=== PATIENT | male | born 1955 | race African-American/Black ===

== ENCOUNTER 2018-11-04 08:17 | Emergency (ER) | payer MEDICAID ==
--- NOTE | 2018-11-04 08:35 | EDPHY ---
H & P Time Seen by Provider: 11/04/18 08:32 HPI/ROS: Chief complaint. Difficulty breathing HPI. 63-year-old male homeless difficulty breathing. He says shortness of breath for 3-4 days. No fever. Has had cough. He has hand and foot pain he says after getting range and snowed on 1 week ago without wearing any socks. His feet are swollen. His hands hurt. Chronic back pain that is worse. Pain is in the low back. No radiation to legs. No leg weakness or bowel or bladder symptoms. Seen for same symptoms at [facility] 2 days ago. He had chest pain last night but not now. No abdominal pain or vomiting or diarrhea ROS 10 systems were reviewed and negative with the exception of the elements mentioned in the history of present illness Past Medical/Surgical History: Past medical history hypertension and chronic back pain Social History: Single, homeless, daily smoker, no alcohol Smoking Status: Current every day smoker Physical Exam: General Appearance: Alert well-developed male mild distress vital signs are stable. Afebrile Eyes: Pupils equal and round no pallor or injection. ENT, Mouth: Mucous membranes are moist. Respiratory: There are no retractions, lungs are clear to auscultation. Cardiovascular: Regular rate and rhythm. Gastrointestinal: Abdomen is soft and nontender, no masses, bowel sounds normal. Neurological: Awake and alert, sensory and motor exams grossly normal. Skin: Warm and dry, no rashes. Musculoskeletal: Neck is supple nontender. Extremities both feet are swollen. No obvious evidence of frostbite. No blistering. No evidence for infection. Hands appear normal. Psychiatric: Patient is oriented X 3, there is no agitation. Constitutional: Initial Vital Signs Temperature (C) 36.4 C 11/04/18 08:22 Heart Rate 88 11/04/18 08:22 Respiratory Rate 18 11/04/18 08:22 Blood Pressure 153/78 H 11/04/18 08:22 O2 Sat (%) 94 11/04/18 08:22 O2 Delivery Mode Room Air Allergies/Adverse Reactions: haloperidol [From Haldol] Allergy (Verified 11/04/18 08:21) wool Allergy (Verified 11/04/18 08:21) Home Medications: Medication Instructions Recorded Albuterol Hfa Anes Only [Proair 2 puffs IH QID PRN #1 mdi 11/04/18 Hfa Icu (*)] Lisinopril 11/04/18 Medical Decision Making - Diagnostics EKG Interpretation: EKG interpreted by me shows normal sinus rhythm normal interval and axis. QRS is normal there is no significant ST elevation or depression. No arrhythmia. The rate is 82 Imaging Results: Imaging Impressions Chest X-Ray 11/04/18 08:48 Impression: Hypoventilatory chest with interstitial prominence that could be related to bronchitis, fluid overload, or interstitial lung disease. Chest x-ray interpreted by me shows likely mild fluid overload and possible bronchitis. No evidence for pneumonia Procedures: IV normal saline Ibuprofen for back pain ED Course/Re-evaluation: Re-evaluation at 1:45 p.m.. Patient is stable. He and I discussed imaging lab results we discussed treatment plan including criteria for return importance of follow-up further evaluation. He expresses understanding and agreement Differential Diagnosis: I considered pneumonia, congestive heart failure, cold injury - Data Points Laboratory Results: Laboratory Results 11/04/18 12:11 11/04/18 10:10 11/04/18 11/04/18 11/04/18 12:11 10:18 10:10 WBC 8.60 10^3/uL 10^3/uL (3.80-9.50) RBC 3.82 10^6/uL L 10^6/uL (4.40-6.38) Hgb 12.6 g/dL L g/dL (13.7-17.5) Hct 37.6 % L % (40.0-51.0) MCV 98.4 fL fL (81.5-99.8) MCH 33.0 pg pg (27.9-34.1) MCHC 33.5 g/dL g/dL (32.4-36.7) RDW 13.3 % % (11.5-15.2) Plt Count 346 10^3/uL 10^3/uL (150-400) MPV 8.9 fL fL (8.7-11.7) Neut % (Auto) 65.3 % % (39.3-74.2) Lymph % (Auto) 25.5 % % (15.0-45.0) [place] % (Auto) 7.2 % % (4.5-13.0) Eos % (Auto) 1.2 % % (0.6-7.6) Baso % (Auto) 0.3 % % (0.3-1.7) Nucleat RBC Rel Count 0.0 % % (0.0-0.2) Absolute Neuts (auto) 5.62 10^3/uL 10^3/uL (1.70-6.50) Absolute Lymphs (auto) 2.19 10^3/uL 10^3/uL (1.00-3.00) Absolute Monos (auto) 0.62 10^3/uL 10^3/uL (0.30-0.80) Absolute Eos (auto) 0.10 10^3/uL 10^3/uL (0.03-0.40) Absolute Basos (auto) 0.03 10^3/uL 10^3/uL (0.02-0.10) Absolute Nucleated RBC 0.00 10^3/uL 10^3/uL (0-0.01) Immature Gran % 0.5 % % (0.0-1.1) Immature Gran # 0.04 10^3/uL 10^3/uL (0.00-0.10) Sodium 139 mEq/L mEq/L (135-145) Potassium 4.6 mEq/L mEq/L (3.5-5.2) Chloride 106 mEq/L mEq/L (97-110) Carbon Dioxide 26 mEq/l mEq/l (22-31) Anion Gap 7 mEq/L mEq/L (6-14) BUN 13 mg/dL mg/dL (7-23) Creatinine 0.8 mg/dL mg/dL (0.7-1.3) Estimated GFR > 60 Glucose 105 mg/dL H mg/dL (70-100) Calcium 8.4 mg/dL L mg/dL (8.5-10.4) POC Troponin I 0.00 ng/mL ng/mL (0.00-0.08) NT-Pro-B Natriuret Pep 170 pg/mL H pg/mL (0-125) Specimen Hemolysis 154 18 10:10 WBC REJ RBC REJ Hgb REJ Hct REJ MCV REJ MCH REJ MCHC REJ RDW REJ Plt Count REJ MPV REJ Neut % (Auto) REJ Lymph % (Auto) REJ [place] % (Auto) REJ Eos % (Auto) REJ Baso % (Auto) REJ Nucleat RBC Rel Count REJ Absolute Neuts (auto) REJ Absolute Lymphs (auto) REJ Absolute Monos (auto) REJ Absolute Eos (auto) REJ Absolute Basos (auto) REJ Absolute Nucleated RBC REJ Immature Gran % REJ Immature Gran # REJ Sodium Potassium Chloride Carbon Dioxide Anion Gap BUN Creatinine Estimated GFR Glucose Calcium POC Troponin I NT-Pro-B Natriuret Pep Specimen Hemolysis Point of Care Test Results: Chemistry 11/04/18 10:18 POC Troponin I 0.00 ng/mL ng/mL (0.00-0.08) Departure - Departure Disposition: Home, Routine, Self-Care Clinical Impression: Acute bronchitis Qualifiers: Bronchitis organism: unspecified organism Qualified Code(s): J20.9 - Acute bronchitis, unspecified Condition: Good Instructions: Acute Bronchitis (ED) Additional Instructions: Use your inhaler 2 puffs every 4-6 hours to help with breathing Return for worsening symptoms. [facility] without fail Referrals: NONE *PRIMARY CARE P,. [Primary Care Provider] - As per Instructions [facility] [Outside] - 2-3 days without fail Prescriptions: Albuterol Hfa Anes Only [Proair Hfa Icu (*)] 2 puffs IH QID PRN #1 mdi PRN Reason: Short Of Breath/Dyspnea
--- NOTE | 2018-11-04 10:24 | ASMTCMCOM ---
CM Note CM Note Notes: Pt seen by luz elena of ED [facility]. Pt is in [place] from [place]. He was somewhat lethargic and had difficulty responding to questions. He reported that he has been here for the last two weeks. He does not know anyone in town and he has been sleeping on the streets. He was seen for the same symptoms two days ago at [facility]. He reported that he is a and has access to [employer] benefits. He has not completed coordinated entry. resource list for [facility] was provided as well as coordinated entry, path to home and other community resources. Date Signed: 11/04/2018 10:24 AM Electronically Signed By:Dominguez Fowler LCSW
[2018-11-04 12:19] LABS: PLATELET COUNT 346 10^3/uL (150-400)
--- NOTE | 2018-11-04 12:40 | ASMTCMCOM ---
CM Note CM Note Notes: Pt lethargic and difficult to arouse Pt is new to area and unfamiliar with the bus system and coordinated entry program. Cab voucher provided to coordinated entry. Date Signed: 11/04/2018 12:39 PM Electronically Signed By:Dominguez Fowler LCSW
[2018-11-04 14:14] VITALS: BP 158/79
--- NOTE | 2018-11-04 14:30 | ASMTCMCOM ---
CM Note CM Note Notes: Pt in [place] wearing surgical recovery shoes. He stated he was wearing shoes that were too small. Pt wears size 15 shoes. No size 15 available in [facility] or local [employer] stores. New shoes and socks were supplied by [employer] for homeless veterans. Date Signed: 11/04/2018 02:30 PM Electronically Signed By:Dominguez Fowler LCSW
--- NOTE | 2018-11-04 16:08 | CPEKG ---
Test Reason : OPEN Blood Pressure : / mmHG Vent. Rate : 082 BPM Atrial Rate : 082 BPM P-R Int : 176 ms QRS Dur : 089 ms QT Int : 354 ms P-R-T Axes : 055 032 020 degrees QTc Int : 414 ms Sinus rhythm Confirmed by Everardo Vargas ([id number]) on 11/04/2018 4:07:37 PM Referred By: Confirmed By:Everardo Vargas
== END 2018-11-04 14:48 | disposition home or self-care (01) ==
DX: J20.9 Acute bronchitis, unspecified (principal); I10 Essential (primary) hypertension; F17.200 Nicotine dependence, unspecified, uncomplicated
CPT/HCPCS: 84484-PO